=== PATIENT | male | born 1940 | race Caucasian/White ===

== ENCOUNTER 2018-06-17 06:29 | Day surgery (SDC) | payer MEDICARE, BC ==
[~2018-06-17 06:29] MED LIST: Lactated Ringers 1,000 ML IV SCH
[2018-06-17] MEDS ORDERED: Propofol 200 MG/20 ML SDV ONE (07:53)
[2018-06-17] MEDS ORDERED: fentaNYL 100 MCG/2 ML SDV ONE (07:53)
--- NOTE | 2018-06-17 11:27 | OR ---
PREOPERATIVE DIAGNOSIS: Positive Cologuard test. POSTOPERATIVE DIAGNOSIS: Colonic polyps x4, removed. PROCEDURE PROPOSED: Total flexible colonoscopy. PROCEDURE DONE: Total flexible colonoscopy with polypectomy x4. INDICATION: This is a 77-year-old gentleman who was found to have a positive Cologuard test on recent physical. He has never had a previous colonoscopy. He denies any family history of colon cancer or colon polyps. He denies any bowel changes. TECHNIQUE: The patient brought to the endoscopy suite, placed in left lateral decubitus position. He was sedated per [employer] with propofol. The flexible video colonoscope was then passed transanally and then under visualization advanced to the cecum. Examination reveals a normal ascending colon as well as transverse colon. In the proximal descending colon at 60 cm, there was a small polyp removed by hot snare technique and retrieved with suction. The remainder of the descending colon was normal. The sigmoid colon revealed a couple of polyps at 40 cm, both removed by hot snare technique and retrieved with suction. He was then found to have a larger pedunculated polyp with a fairly long stalk at 25 cm measuring close to a cm in size. This one likewise was removed with hot snare technique and retrieved with suction and the remainder of the rectosigmoid was normal as the scope was then withdrawn. He tolerated the procedure well. FINAL IMPRESSION: Colonic polyps x4, removed. PLAN: He will be sent a letter with pathology report, but because of the multitude of polyps, I feel that he should have a followup exam in 3-4 years from now. He will be sent a letter of pathology report. SCM: 06/17/2018 08:29:28 MODL: 06/17/2018 11:22:44 /[id number]
== END 2018-06-17 10:15 | disposition home or self-care (01) ==
LOC: VM.SDS 06:29
PROVIDERS: ATTEND Surgery
DX: R19.5 Other fecal abnormalities (principal); D12.4 Benign neoplasm of descending colon; D12.5 Benign neoplasm of sigmoid colon; E11.9 Type 2 diabetes mellitus without complications; Z87.891 Personal history of nicotine dependence; Z79.84 Long term (current) use of oral hypoglycemic drugs; Z79.899 Other long term (current) drug therapy
CPT/HCPCS: 00811; 82962; J2704; J3010; J7120

== ENCOUNTER 2021-10-02 07:03 | Day surgery (SDC) | payer MEDICARE, BC ==
[2021-10-02] MEDS: Lactated Ringers 1,000 ML IV SCH (07:19)
[2021-10-02] MEDS ORDERED: Propofol 200 MG/20 ML SDV ONE (08:10)
[2021-10-02] MEDS ORDERED: fentaNYL 100 MCG/2 ML SDV ONE (08:10)
== END 2021-10-02 09:35 | disposition home or self-care (01) ==
LOC: VM.SDS 07:03
PROVIDERS: ATTEND Family Medicine
DX: Z12.11 Encounter for screening for malignant neoplasm of colon (principal); D12.3 Benign neoplasm of transverse colon; I10 Essential (primary) hypertension; E11.9 Type 2 diabetes mellitus without complications; N40.0 Benign prostatic hyperplasia without lower urinary tract symptoms; Z98.890 Other specified postprocedural states; Z79.84 Long term (current) use of oral hypoglycemic drugs; Z79.899 Other long term (current) drug therapy; Z87.891 Personal history of nicotine dependence
CPT/HCPCS: 00811; 82947; 88305; J2704; J3010; J7120